=== PATIENT | male | born 1970 | race Caucasian/White ===

== ENCOUNTER 2017-06-22 19:27 | Observation (INO) | payer BC ==
[~2017-06-22] VITALS: Ht 185.4 cm; Wt 96.9 kg
[~2017-06-22 19:27] MED LIST: HYDROCODON-ACE1 EAC7 PO
[2017-06-22 19:46] LABS: HEMATOCRIT 46.8 % (38.0-50.0); HEMOGLOBIN 16.4 G/DL (12.5-16.6); MCH 30.4 PG (29.0-34.0); MCV 86.7 FL (86-99); PLATELET COUNT 205 K/uL (156-360); RBC DIS.WIDTH-CV 12.4 % (11.8-14.6); RBC DIS.WIDTH-SD 39.7 % (39-53); WHITE BLOOD COUNT 8.4 K/uL (4.1-10.2)
[2017-06-22 20:04] LABS: CHLORIDE 106 mEq/L (99-109); POTASSIUM 3.9 mEq/L (3.7-5.4); SODIUM 141 mEq/L (136-147)
[2017-06-22 20:05] LABS: GLUCOSE 104 mg/dL (70-99)
[2017-06-22 20:09] LABS: CREATININE 1.1 mg/dL (0.6-1.3); GFR ESTIMATE (CALCULATED) > 59 mL/min/ (58.99-99999)
[2017-06-22 20:10] LABS: UREA NITROGEN (BUN) 15 mg/dL (9-23)
[2017-06-22 20:16] LABS: TROP-I INTERPRETATION NEGATIVE; TROPONIN-I < 0.01 ng/mL (0.0-0.30)
[2017-06-22] MEDS ORDERED: ASPIRIN81 M2 PO (21:47)
[2017-06-23 01:50] VITALS: BP 134/74
[2017-06-23 03:20] LABS: TROP-I INTERPRETATION NEGATIVE; TROPONIN-I < 0.01 ng/mL (0.0-0.30)
[2017-06-23 04:00] VITALS: BP 118/71
[2017-06-23 08:13] VITALS: BP 134/64
[2017-06-23 09:26] LABS: TROP-I INTERPRETATION NEGATIVE; TROPONIN-I < 0.01 ng/mL (0.0-0.30)
== END 2017-06-23 12:19 | disposition home or self-care (01) ==
LOC: EME 19:27 → ENRESERV 22:28 → EDOF 22:28 → ENRESERV 06-23 00:15 → 5SOUTH 06-23 01:40 → ENPENDDIS 06-23 11:08 → 5SOUTH 06-23 12:19
PROVIDERS: Hospitalist; Physician Assistant Medical
DX: R06.09 Other forms of dyspnea (principal); R07.9 Chest pain, unspecified; E78.5 Hyperlipidemia, unspecified; F17.210 Nicotine dependence, cigarettes, uncomplicated; E66.3 Overweight; Z68.28 Body mass index [BMI] 28.0-28.9, adult; I34.1 Nonrheumatic mitral (valve) prolapse; Z82.49 Family history of ischemic heart disease and other diseases of the circulatory system
CPT/HCPCS: 71046; 80048; 82948; 84484; 85027; 93005; 99281; 99285; G0378